=== PATIENT | female | born 1945 | race Caucasian/White ===

== ENCOUNTER → 2016-12-17 | Outpatient (CLI) | payer OTHER | LOC: FIMAGING 07:02 | PROVIDERS: ATTEND Internal Medicine | DX: M51.36 Other intervertebral disc degeneration, lumbar region (principal); M51.16 Intervertebral disc disorders with radiculopathy, lumbar region; M48.06 Spinal stenosis, lumbar region; M46.96 Unspecified inflammatory spondylopathy, lumbar region ==

== ENCOUNTER → 2016-12-20 | Outpatient (CLI) | payer OTHER | LOC: CIMAGING 08:15 | PROVIDERS: ATTEND Internal Medicine | DX: S32.10XA Unspecified fracture of sacrum, initial encounter for closed fracture (principal); M51.36 Other intervertebral disc degeneration, lumbar region; M51.37 Other intervertebral disc degeneration, lumbosacral region | CPT/HCPCS: 72192-PO ==

== ENCOUNTER → 2016-12-26 | Outpatient (CLI) | payer OTHER | LOC: BMCIMAGING 10:22 | PROVIDERS: ATTEND Internal Medicine | DX: Z13.820 Encounter for screening for osteoporosis (principal); M85.80 Other specified disorders of bone density and structure, unspecified site; M54.5 Low back pain ==

== ENCOUNTER → 2017-01-01 | Outpatient (CLI) | payer OTHER | LOC: BRMIMAGING 13:49 | PROVIDERS: ATTEND Internal Medicine | DX: Z12.31 Encounter for screening mammogram for malignant neoplasm of breast (principal) | CPT/HCPCS: G0202 ==

== ENCOUNTER → 2018-02-12 | Outpatient (CLI) | payer OTHER | LOC: BRMIMAGING 10:09 | PROVIDERS: ATTEND Internal Medicine | DX: Z12.31 Encounter for screening mammogram for malignant neoplasm of breast (principal) ==